=== PATIENT | female | born 1940 | race Caucasian/White ===

== ENCOUNTER 2017-02-16 11:16 | Emergency (ER) | payer OTHER ==
--- NOTE | 2017-02-16 11:34 | EDPHY ---
H & P Stated Complaint: stumbled/fell off porch impacting l shoulder and elbow/denies loc or neck p HPI/ROS: Chart made in Error. Please Ignore. Source: Patient - Personal History Current Tetanus/Diphtheria Vaccine: Yes - Medical/Surgical History Hx Asthma: No Hx Chronic Respiratory Disease: No Hx Diabetes: Yes Hx Cardiac Disease: No Hx Renal Disease: No Hx Cirrhosis: No Hx Alcoholism: No Hx HIV/AIDS: No Hx Splenectomy or Spleen Trauma: No Other PMH: diab/htn/hysterectomy - Social History Smoking Status: Never smoked Constitutional: Initial Vital Signs Temperature (C) 36.4 C 02/16/17 11:27 Heart Rate 88 02/16/17 11:27 Respiratory Rate 17 02/16/17 11:27 Blood Pressure 102/73 02/16/17 11:27 O2 Sat (%) 94 02/16/17 11:27 O2 Delivery Mode Room Air Allergies/Adverse Reactions: No Known Allergies Allergy (Unverified 02/16/17 11:24) Home Medications: Medication Instructions Recorded Aspirin 325 mg (*) 02/16/17 Atorvastatin Calcium 02/16/17 GABAPENTIN 02/16/17 Hydrocodone/APAP 5/325 [[place] 1 - 2 tab PO Q4H PRN #10 tab 02/16/17 5/325 (*)] LORAZEPAM 02/16/17 Lisinopril 02/16/17 MIRTAZAPINE 02/16/17 Metformin HCl 02/16/17 Omeprazole 02/16/17 QUEtiapine FUMARATE 02/16/17 VENLAFAXINE HCL 02/16/17 ZOLPIDEM TARTRATE 02/16/17 Medical Decision Making - Diagnostics Imaging Results: Imaging Impressions Cervical Spine CT 02/16/17 11:59 Impression: Mild periventricular and deep hemispheric white matter change that can be seen with small vessel ischemic disease. No evidence for acute intracranial abnormality. CT Cervical Spine Without IV Contrast History: Fall. Pain. Technique: 1.25 mm helical images were obtained of the cervical spine without contrast. Multiplanar reformation was performed. Radiation dose reduction technique was utilized. Findings: No evidence for acute fracture. No significant spondylolisthesis. There is disk height narrowing, endplate sclerosis, and osteophytosis at multiple levels. Uncovertebral joint hypertrophy and spurring and facet arthropathy are seen at multiple levels. Encroachment is more severe at C3-C4 with moderate to severe left and moderate right neural foraminal narrowing. Vascular calcifications are seen bilaterally in the carotids indicating atherosclerotic disease. No evidence for prevertebral soft tissue swelling. Impression: No evidence for acute fracture. Multilevel degenerative disk and degenerative joint disease of the cervical spine, more severe at C3-C4. Evidence of atherosclerotic disease in the carotid arteries, bilateral. Results called and discussed with Radha Anderson on 02/16/[address] 02/16/17 11:59 Impression: Mild periventricular and deep hemispheric white matter change that can be seen with small vessel ischemic disease. No evidence for acute intracranial abnormality. CT Cervical Spine Without IV Contrast History: Fall. Pain. Technique: 1.25 mm helical images were obtained of the cervical spine without contrast. Multiplanar reformation was performed. Radiation dose reduction technique was utilized. Findings: No evidence for acute fracture. No significant spondylolisthesis. There is disk height narrowing, endplate sclerosis, and osteophytosis at multiple levels. Uncovertebral joint hypertrophy and spurring and facet arthropathy are seen at multiple levels. Encroachment is more severe at C3-C4 with moderate to severe left and moderate right neural foraminal narrowing. Vascular calcifications are seen bilaterally in the carotids indicating atherosclerotic disease. No evidence for prevertebral soft tissue swelling. Impression: No evidence for acute fracture. Multilevel degenerative disk and degenerative joint disease of the cervical spine, more severe at C3-C4. Evidence of atherosclerotic disease in the carotid arteries, bilateral. Results called and discussed with Radha Anderson on 02/16/2017 at 1259 hours. - Data Points Medications Given: Discontinued Medications Hydrocodone Bitart/Acetaminophen ([place] 5/325) 1 tab PO EDNOW ONE Stop: 02/16/17 12:02 Last Admin: 02/16/17 12:11 Dose: 1 tab Ondansetron HCl (Zofran Odt) 4 mg PO EDNOW ONE Stop: 02/16/17 12:02 Last Admin: 02/16/17 12:11 Dose: 4 mg Departure - Departure Disposition: Home, Routine, Self-Care Clinical Impression: Accidental fall, Effusion, left elbow, Injury of left shoulder, Left elbow contusion, Degenerative cervical disc Condition: Fair Instructions: Fall Prevention for Older Adults (ED), Elbow Sprain (ED) Additional Instructions: Patient is to remain in splint and sling until seen by Orthopedics for follow- up within 1 week. Patient is not to smoke marijuana and take narcotic pain medicine at the same time. The patient has been advised to follow fall precautions. Referrals: Ry Ledezma MD [Medical Doctor] - 5-7 days, call for appt. Rachelle Reyes MD [Primary Care Provider] - As per Instructions Prescriptions: Hydrocodone/APAP 5/325 [[place] 5/325 (*)] 1 - 2 tab PO Q4H PRN #10 tab PRN Reason: Pain, Moderate
[2017-02-16] MEDS ORDERED: ONDANSETRON DISINTEGRATING 4 MG TAB PO ONE (12:01)
[2017-02-16] MEDS ORDERED: HYDROCODONE/APAP 5/325 TAB PO ONE (12:01)
--- NOTE | 2017-02-16 12:07 | EDPHY ---
H & P Time Seen by Provider: 02/16/17 12:04 HPI/ROS: HPI: Mr. Ac is a 76 yrs, female who presents with Chief Complaint: witnessed Fall Location: left side of head, left shoulder, left elbow Quality: Injury Duration: 1-2 hours prior to arrival Signs and Symptoms: No loss of consciousness, positive mild right-sided religious dull aching headache, no dizziness, no chest pain, no shortness of breath, no abdominal pain, no back pain, no radiation, no weakness, no bleeding Timing: sudden Severity: moderate Context: Patient smoked marijuana this morning and daughter feels was "high" which contributed to fall. Went out onto the back porch and tripped over the rug landing directly on her left side. Denies hitting her head but incidentally complains of right-sided headache. Was able to get herself up without assistance. Daughter witnessed the fall. Patient has a history of left shoulder replacement. Right hand dominant. Takes a full strength aspirin 325 mg daily. Modifying Factors: ice applied Comment: ROS: Eyes: No blurred vision Respiratory: No shortness of breath, no cough Cardiovascular: No chest pain Gastrointestinal: No nausea, no vomiting no diarrhea Genitourinary: No dysuria Extremities: No myalgias Neurologic: No weakness, no numbness Skin: No rashes Hematologic: No bruising, no bleeding MEDICAL/SURGICAL HISTORY: Hypertension, hyperlipidemia, anxiety, type 2 diabetes mellitus Social History: Moved to [place] from [place] this year to live with her daughter and her partner. Smoking Status: Never smoked Physical Exam: CONSTITUTIONAL: White elderly pleasant female, accompanied by daughter, awake and alert, no obvious distress HEENT: Atraumatic and normocephalic, PERRL, EOMI. Tympanic membranes clear. Oropharynx clear, no exudate and moist pink mucosa. Airway patent. No lymphadenopathy. NECK: Supple, full range of motion, no midline tenderness, mild left trapezius muscle reproducible tenderness, No meningismus. Cardiovascular: Normal S1/S2, regular rate, regular rhythm, without murmur rub or gallop. PULMONARY/CHEST: Symmetrical and nontender and no crepitus. Clear to auscultation bilaterally Good air movement. No accessory muscle usage. ABDOMEN: Soft, nondistended, nontender, no rebound, no guarding, no peritoneal signs, no masses or organomegaly. No CVAT. EXTREMITIES: 2/2 pulses, no clubbing, no cyanosis or edema. Left shoulder shows a well-healed anterior incision consistent with a replacement, good range of abduction/internal rotation/external rotation. Deltoid strength 5/5. Left elbow shows good range of flexion and extension. Moderate swelling and ecchymosis over the olecranon extending into the upper forearm. NEUROLOGICAL: no focal neuro deficits. GCS 15. no ataxia. SKIN: Warm and dry, pallor, no erythema. no rash. Good capillary refill. Constitutional: Initial Vital Signs Temperature (C) 36.4 C 02/16/17 11:27 Heart Rate 88 02/16/17 11:27 Respiratory Rate 17 02/16/17 11:27 Blood Pressure 102/73 02/16/17 11:27 O2 Sat (%) 94 02/16/17 11:27 O2 Delivery Mode Room Air Allergies/Adverse Reactions: No Known Allergies Allergy (Unverified 02/16/17 11:24) Home Medications: Medication Instructions Recorded Aspirin 325 mg (*) 02/16/17 Atorvastatin Calcium 02/16/17 GABAPENTIN 02/16/17 Hydrocodone/APAP 5/325 [[place] 1 - 2 tab PO Q4H PRN #10 tab 02/16/17 5/325 (*)] LORAZEPAM 02/16/17 Lisinopril 02/16/17 MIRTAZAPINE 02/16/17 Metformin HCl 02/16/17 Omeprazole 02/16/17 QUEtiapine FUMARATE 02/16/17 VENLAFAXINE HCL 02/16/17 ZOLPIDEM TARTRATE 02/16/17 Medical Decision Making - Diagnostics Imaging Results: Imaging Impressions Head CT 02/16/17 11:59 Impression: Mild periventricular and deep hemispheric white matter change that can be seen with small vessel ischemic disease. No evidence for acute intracranial abnormality. CT Cervical Spine Without IV Contrast History: Fall. Pain. Technique: 1.25 mm helical images were obtained of the cervical spine without contrast. Multiplanar reformation was performed. Radiation dose reduction technique was utilized. Findings: No evidence for acute fracture. No significant spondylolisthesis. There is disk height narrowing, endplate sclerosis, and osteophytosis at multiple levels. Uncovertebral joint hypertrophy and spurring and facet arthropathy are seen at multiple levels. Encroachment is more severe at C3-C4 with moderate to severe left and moderate right neural foraminal narrowing. Vascular calcifications are seen bilaterally in the carotids indicating atherosclerotic disease. No evidence for prevertebral soft tissue swelling. Impression: No evidence for acute fracture. Multilevel degenerative disk and degenerative joint disease of the cervical spine, more severe at C3-C4. Evidence of atherosclerotic disease in the carotid arteries, bilateral. Results called and discussed with Radha Anderson on 02/16/2017 at 1259 hours. ED Course/Re-evaluation: CT head scan, CT cervical scan, left shoulder x-ray, left elbow x-ray, left wrist x-ray, oral medications Witnessed Fall mechanical in nature. No signs of syncope. Fingerstick upon arrival [address] scan shows age-related changes without acute hemorrhage/infarct Cervical CT scan shows no evidence of fracture but does show multilevel degenerative changes No signs of neurovascular compromise back/ulnar nerve injury/dislocation Shoulder replacement hardware appears to be in appropriate position Patient will be placed in posterior long-arm splint and sling with orthopedic follow-up - Data Points Laboratory Results: 02/16/17 11:54 POC Glucose 96 mg/dL mg/dL (70-100) Medications Given: Discontinued Medications Hydrocodone Bitart/Acetaminophen ([place] 5/325) 1 tab PO EDNOW ONE Stop: 02/16/17 12:02 Last Admin: 02/16/17 12:11 Dose: 1 tab Ondansetron HCl (Zofran Odt) 4 mg PO EDNOW ONE Stop: 02/16/17 12:02 Last Admin: 02/16/17 12:11 Dose: 4 mg Point of Care Test Results: 02/16/17 11:54 POC Glucose 96 Departure - Departure Disposition: Home, Routine, Self-Care Clinical Impression: Effusion, left elbow, Degenerative cervical disc Accidental fall Qualifiers: Encounter type: initial encounter Qualified Code(s): W19.XXXA - Unspecified fall, initial encounter Injury of left shoulder Qualifiers: Encounter type: initial encounter Qualified Code(s): S49.92XA - Unspecified injury of left shoulder and upper arm, initial encounter Left elbow contusion Qualifiers: Encounter type: initial encounter Qualified Code(s): S50.02XA - Contusion of left elbow, initial encounter Condition: Fair Additional Instructions: Patient is to remain in splint and sling until seen by Orthopedics for follow- up within 1 week. Patient is not to smoke marijuana and take narcotic pain medicine at the same time. The patient has been advised to follow fall precautions. Referrals: Rachelle Reyes MD [Primary Care Provider] - As per Instructions Ry Ledezma MD [Medical Doctor] - 5-7 days, call for appt. Prescriptions: Hydrocodone/APAP 5/325 [[place] 5/325 (*)] 1 - 2 tab PO Q4H PRN #10 tab PRN Reason: Pain, Moderate
[2017-02-16 14:35] VITALS: RESP 16; O2SAT 95
[2017-02-16 14:36] VITALS: BP 125/90; PULSE 74; TEMP 97.9
== END 2017-02-16 14:47 | disposition home or self-care (01) ==
DX: S50.02XA Contusion of left elbow, initial encounter (principal); S49.92XA Unspecified injury of left shoulder and upper arm, initial encounter; M25.422 Effusion, left elbow; M50.30 Other cervical disc degeneration, unspecified cervical region; I10 Essential (primary) hypertension; E11.9 Type 2 diabetes mellitus without complications; Z79.82 Long term (current) use of aspirin; Z79.84 Long term (current) use of oral hypoglycemic drugs; W01.0XXA Fall on same level from slipping, tripping and stumbling without subsequent striking against object, initial encounter; Y92.89 Other specified places as the place of occurrence of the external cause; Y99.8 Other external cause status; Y93.89 Activity, other specified
CPT/HCPCS: A4565

== ENCOUNTER 2017-04-10 01:37 | Inpatient (IN) | payer OTHER ==
--- NOTE | 2017-04-10 01:48 | EDPHY ---
H & P HPI/ROS: HPI CHIEF COMPLAINT: Altered mental status, confusion, falls HISTORY OF PRESENT ILLNESS: This patient very pleasant 76-year-old female significant past medical history for hypertension, hyperlipidemia, mild dementia , presents emergency room with her daughter by private vehicle for confusion. Her daughter noticed this more evening around 9:00 p.m. when she got home she was acutely altered and confused. There is evidence that she fell with a abrasion to her left forehead and abrasion to the anterior right tibia. Patient denies headache. Chest pain shortness of breath. Her daughter decided to bring her to the emergency room due to confusion. She has had trouble with her sodium in the past. Her daughter reports she was hospitalized seen the a go back in September for altered mental status with hyponatremia. She has not had any new medications. However her primary care doctor Dr. Bran [facility] states she recently pulled her off omeprazole she thought the venlafaxine was interfering with this. Patient denies recent illness, denies fever, chest pain or significant shortness of breath. Past Medical History: Hypertension, hyperlipidemia, mild dementia, GERD Past Surgical History: No recent surgery Social History: Denies daily use drugs alcohol tobacco products. Family History: Noncontributory ROS REVIEW OF SYSTEMS: A comprehensive 10 point review of systems is otherwise negative aside from elements mentioned in the history of present illness. Exam Constitutional altered mental status, confusion, picking at things, triage nursing summary reviewed, vital signs reviewed, awake/alert. Eyes normal conjunctivae and sclera, EOMI, PERRLA. HENT normal inspection, atraumatic, moist mucus membranes, no epistaxis, neck supple/ no meningismus, no raccoon eyes. Respiratory clear to auscultation bilaterally, normal breath sounds, no respiratory distress, no wheezing. Cardiovascular rate normal, regular rhythm, no murmur, no edema, distal pulses normal. Gastrointestinal soft, non-tender, no rebound, no guarding, normal bowel sounds, no distension, no pulsatile mass. Genitourinary no CVA tenderness. Musculoskeletal no midline vertebral tenderness, full range of motion, no calf swelling, no tenderness of extremities, no meningismus, good pulses, neurovascularly intact. Skin pink, warm, & dry, no rash, skin atraumatic. Neurologic appears to be altered, awake, alert and oriented x 3, AAOx3, moves all 4 extremities equally, motor intact, sensory intact, CN II-XII intact, normal cerebellar, normal vision, normal speech. Psychiatric normal mood/affect. Heme/Lymph/Immune no lymphadenopathy. Differential Diagnosis: Includes but is not limited to in a particular order altered mental status acute, infection, electrolyte disturbance, intracranial bleed. 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 Re-evaluation: EKG interpretation by me on record in [employer] system. Impression and time of EKG 2:26 a.m., this is sinus rhythm Q-waves noted in inferior leads otherwise unremarkable EKG. ED CT scan of the head without contrast for altered mental status is unremarkable. No acute bleed. 0312AM: Patient's blood work has resulted. Shows a low sodium 124. This most likely the cause of her confusion. Symptomatic hyponatremia. Patient was given only 500 cc of fluid here in the emergency room. Will admit to the hospitalist service for further correction of her sodium. Source: Patient - Medical/Surgical History Hx Asthma: No Hx Chronic Respiratory Disease: No Hx Diabetes: Yes Hx Cardiac Disease: No Hx Renal Disease: No Hx Cirrhosis: No Hx Alcoholism: No Hx HIV/AIDS: No Hx Splenectomy or Spleen Trauma: No Other PMH: diab/htn/hysterectomy - Social History Smoking Status: Never smoked Constitutional: Initial Vital Signs Heart Rate 86 04/10/17 01:42 Respiratory Rate 16 04/10/17 01:42 Blood Pressure 93/67 L 04/10/17 01:42 O2 Sat (%) 95 04/10/17 01:42 O2 Delivery Mode Room Air Allergies/Adverse Reactions: No Known Allergies Allergy (Unverified 02/16/17 11:24) Home Medications: Medication Instructions Recorded Atorvastatin Calcium [Lipitor 40 20 mg PO DAILY 02/16/17 mg (*)] LORazepam [Ativan (*)] 0.5 mg PO BID 02/16/17 Lisinopril [Zestril 40 mg (*)] 40 mg PO DAILY@12 02/16/17 Venlafaxine Xr [Effexor Xr 75MG 300 mg PO DAILY 02/16/17 (*)] metFORMIN HCL [Glucophage 1000 mg] 1,000 mg PO BIDMEAL 02/16/17 Acetaminophen [Tylenol ES 500 mg 1,000 mg PO BID 04/10/17 (*)] Acetaminophen [Tylenol ES 500 mg 1,000 mg PO DAILY PRN 04/10/17 (*)] Aspirin EC [Aspirin EC 81 mg (*)] 81 mg PO DAILY 04/10/17 Estrogens,Conjugated [Premarin 0.3 0.3 mg PO DAILY 04/10/17 MG (*)] Quetiapine Fumarate [Seroquel Xr] 200 mg PO HS 04/10/17 Medical Decision Making - Data Points Laboratory Results: Laboratory Results 04/10/17 02:10 04/10/17 02:10 04/10/17 02:10 Sodium 122 mEq/L L mEq/L (134-144) Potassium 4.8 mEq/L mEq/L (3.5-5.2) Chloride 89 mEq/L L mEq/L (97-110) Carbon Dioxide 20 mEq/l L mEq/l (22-31) Anion Gap 13 mEq/L mEq/L (8-16) BUN 14 mg/dL mg/dL (7-23) Creatinine 0.5 mg/dL L mg/dL (0.6-1.0) Estimated GFR > 60 Glucose 128 mg/dL H mg/dL (70-100) Calcium 9.9 mg/dL mg/dL (8.5-10.4) TSH 2.830 uIU/mL uIU/mL (0.465-4.680) Medications Given: Acetaminophen (Tylenol) 1,000 mg PO BID [facility] Stop: 10/07/17 20:59 Last Admin: 04/10/17 21:36 Dose: 1,000 mg Acetaminophen (Tylenol) 1,000 mg PO DAILY PRN PRN Reason: Pain, Breakthrough Stop: 10/07/17 10:55 Last Admin: 04/10/17 17:22 Dose: 1,000 mg Enoxaparin Sodium (Lovenox) 40 mg SC DAILY [facility] Stop: 10/07/17 08:59 Last Admin: 04/10/17 07:48 Dose: 40 mg Estrogens Conjugated (Premarin) 0.3 mg PO DAILY [facility] Stop: 10/07/17 10:59 Last Admin: 04/10/17 12:08 Dose: 0.3 mg Lisinopril (Zestril) 40 mg PO DAILY@12 [facility] Stop: 10/07/17 11:59 Last Admin: 04/10/17 12:01 Dose: 40 mg Lorazepam (Ativan) 0.5 mg PO BID [facility] Stop: 10/07/17 20:59 Last Admin: 04/10/17 21:36 Dose: 0.5 mg Metformin HCl (Glucophage) 1,000 mg PO BIDMEAL [facility] Stop: 10/07/17 17:59 Last Admin: 04/10/17 17:22 Dose: 1,000 mg Ondansetron HCl (Zofran) 4 mg IVP Q4HRS PRN PRN Reason: Nausea/Vomiting, Can't Take PO Stop: 10/07/17 05:02 Last Admin: 04/10/17 21:36 Dose: 4 mg Quetiapine Fumarate (Seroquel) 200 mg PO HS [facility] Stop: 10/07/17 20:59 Last Admin: 04/10/17 21:36 Dose: 200 mg Sodium Chloride (Salt Tablet) 1,000 mg PO TIDMEAL [facility] Stop: 10/07/17 10:59 Last Admin: 04/10/17 17:22 Dose: 1,000 mg Discontinued Medications Acetaminophen (Tylenol) 1,000 mg PO EDNOW ONE Stop: 04/10/17 03:44 Last Admin: 04/10/17 03:45 Dose: 1,000 mg Acetaminophen (Tylenol) 650 mg PO Q4HRS PRN PRN Reason: Pain, Mild/Fever, Can Take PO Stop: 10/07/17 05:02 Last Admin: 04/10/17 07:47 Dose: 650 mg Sodium Chloride (Ns) 500 mls @ 1,000 mls/hr IV EDNOW ONE PRN Reason: Protocol Stop: 04/10/17 02:38 Last Admin: 04/10/17 02:28 Dose: 500 mls Magnesium Sulfate (Magnesium Sulf 2 Gm (Premix)) 50 mls @ 50 mls/hr IV ONCE ONE Stop: 04/10/17 11:51 Last Admin: 04/10/17 11:59 Dose: 50 mls Ondansetron HCl (Zofran) 4 mg IVP EDNOW ONE Stop: 04/10/17 03:44 Last Admin: 04/10/17 03:44 Dose: 4 mg Departure - Departure Disposition: [facility] Clinical Impression: Hyponatremia Altered mental status Qualifiers: Altered mental status type: unspecified Qualified Code(s): R41.82 - Altered mental status, unspecified Condition: Fair
[2017-04-10] MEDS ORDERED: NS 500 ML IV ONE (02:09)
[2017-04-10 02:20] LABS: % IMMATURE GRANULYOCYTES 0.4 % (0.0-1.1); ABSOLUTE IMMATURE GRANULOCYTES 0.05 10^3/uL (0.00-0.10); ADD DIFF? NO; ADD MORPH? NO; ADD SCAN? NO; ATYPICAL LYMPHOCYTE FLAG 0 (0-99); FRAGMENT RBC FLAG 0 (0-99); HEMATOCRIT 36.7 % (38.0-47.0); HEMOGLOBIN 13.1 g/dL (12.6-16.3); LEFT SHIFT FLG 0 (0-99); LIPEMIA HEMOLYSIS FLAG 90 (0-99); MEAN CELL HEMOGLOBIN 30.7 pg (27.9-34.1); MEAN CELL HEMOGLOBIN CONCENTR. 35.7 g/dL (32.4-36.7); MEAN CELL VOLUME 85.9 fL (81.5-99.8); MEAN PLATELET VOLUME 8.3 fL (8.7-11.7); PLATELET CLUMPS FLAG 0 (0-99); PLATELET COUNT 290 10^3/uL (150-400); RED BLOOD CELL COUNT 4.27 10^6/uL (4.18-5.33); RED CELL DISTRIBUTION WIDTH 15.3 % (11.5-15.2)
--- NOTE | 2017-04-10 02:28 | CPEKG ---
Heart Rate: 85 RR Interval: 706 P-R Interval: 116 QRSD Interval: 90 QT Interval: 384 QTC Interval: 457 P [place]: 50 QRS [place]: 12 T Wave Ken[place]: 76 EKG Severity - BORDERLINE ECG - EKG Impression: SINUS RHYTHM EKG Impression: BORDERLINE INFERIOR Q WAVES Electronically Signed By: Elie Tirado 10-Apr-2017 07:14:16
[2017-04-10 02:30] LABS: APTT 25.2 SEC (23.0-38.0); INR 0.97 (0.83-1.16); PROTIME(PATIENT) 12.8 SEC (12.0-15.0)
[2017-04-10 02:37] LABS: ALANINE AMINOTRANSFERASE 35 IU/L (9-52); ALBUMIN 4.5 g/dL (3.5-5.0); ALKALINE PHOSPHATASE 81 IU/L (38-126); ANION GAP 14 mEq/L (8-16); ASPARTATE AMINOTRANSFERASE 29 IU/L (14-46); BILIRUBIN,TOTAL 0.3 mg/dL (0.1-1.4); BILIRUBIN-CONJUGATED 0.3 mg/dL (0.0-0.5); CALCIUM 9.9 mg/dL (8.5-10.4); CARBON DIOXIDE 20 mEq/l (22-31); CHLORIDE 90 mEq/L (97-110); CREATININE 0.5 mg/dL (0.6-1.0); ETHANOL SERUM < 10 mg/dL (0-10); GLOMERULAR FILTRATION RATE > 60; GLUCOSE 133 mg/dL (70-100); MAGNESIUM 1.5 mg/dL (1.6-2.3); POTASSIUM 4.2 mEq/L (3.5-5.2); SODIUM 124 mEq/L (134-144); TOTAL PROTEIN 7.2 g/dL (6.3-8.2)
[2017-04-10 02:48] LABS: TROPONIN I < 0.012 ng/mL (0.000-0.034)
[2017-04-10 03:05] LABS: CK-MB INTERPRETATION NEGATIVE (NEGATIVE); CREATINE KINASE-MB FRACTION 5.67 ng/mL (0.00-3.19)
[2017-04-10] MEDS ORDERED: ACETAMINOPHEN 500 MG TAB ONE (03:42)
[2017-04-10] MEDS ORDERED: ONDANSETRON 4 MG/2 ML VIAL ONE (03:42)
[2017-04-10] MEDS ORDERED: ACETAMINOPHEN 500 MG TAB PO ONE (03:43)
[2017-04-10] MEDS ORDERED: ONDANSETRON 4 MG/2 ML VIAL IVP ONE (03:43)
[2017-04-10 04:36] LABS: COLOR PALE YELLOW; LEUKOCYTE ESTERASE,URINE NEGATIVE (NEGATIVE); NITRITE,URINE NEGATIVE (NEGATIVE)
[2017-04-10] MEDS ORDERED: ACETAMINOPHEN 325 MG TAB PO PRN (05:03)
[2017-04-10] MEDS: ONDANSETRON 4 MG/2 ML VIAL IVP PRN ×3 (07:49→21:36)
--- NOTE | 2017-04-10 07:54 | GHP ---
[f rep st] HISTORY AND PHYSICAL DATE OF ADMISSION: 04/10/2017 SOURCE: Patient with a history of dementia and quite poor short-term memory at this time. Her daughter did not accompany her to the floor so I am unable to ascertain the patient's baseline. Remainder of information obtained by review of EMR and discussion with ED provider. CHIEF COMPLAINT: Confusion. HISTORY OF PRESENT ILLNESS: This is a very pleasant, 76-year-old female with past medical history significant for dementia, falls, degenerative disk disease of cervical spine, hyperlipidemia, diabetes type 2, hypertension, depression, and GERD, who presents to the emergency department today with acute on chronic altered mental status changes. Apparently patient had been at home when she sustained a fall. Her daughter returned home to find the patient had some abrasions to her right lower leg and left elbow. The patient does not recall any of these events and overall very poor historian. At the time of my interview, the patient is sitting up in the chair with the nursing staff. She is awake and alert but oriented only to person and place of hospital but not the city or state. She is oriented to year but not month. She is not able to recall my name or that she saw me after absence for 5 minutes. Apparently, patient's daughter brought her in for acute worsening of her confusion. Again baseline, unable to ascertain at this point. The patient was found to be hyponatremic and daughter had reported she was recently hospitalized several months ago, sometime in November in [place] for similar symptoms with findings of hyponatremia. She was given apparently IV fluids and subsequently discharged home. The patient is reporting a headache, abdominal pain initially and several minutes later, when reviewed her complaints, she did note a headache and back pain. REVIEW OF SYSTEMS: Quite limited secondary to patient's confusion and question of reliability of her answers as they changed within minutes of asking them. ALLERGIES: No known drug allergies. HOME MEDICATIONS: As available in EMR. Ambien, venlafaxine, Seroquel, omeprazole, mirtazapine, metformin, lorazepam, lisinopril, [place], gabapentin, atorvastatin, aspirin. PAST MEDICAL HISTORY: Significant for dementia, history of hyponatremia, falls , degenerative disk disease cervical spine, hyperlipidemia, diabetes type 2, hypertension, benign essential, depression and GERD. PAST SURGICAL HISTORY: Patient states hysterectomy. FAMILY HISTORY: Unable to obtain secondary to patient's dementia. SOCIAL HISTORY: No known drugs, alcohol, or tobacco use as per the patient. The patient currently resides with her daughter. She recently moved from [place] to be closer to her daughter. CODE STATUS: At this time unable to verify with the family regarding any advanced directives or code status. Will plan to revisit in the daytime. PHYSICAL EXAM: VITALS: Upon arrival, initial blood pressure 93/67, heart rate 86, respiratory rate 16, O2 saturation 95% on room air. Vitals on the floor: Blood pressure 166/90, heart rate 83, respiratory rate 14, O2 saturation 93% on room air with a temperature 36.6. GENERAL: No acute distress, pleasant, frail elderly appearing female is sitting up in a chair. She is petite and of a thin frame. HEENT: Head normocephalic, atraumatic. Eyes: Extraocular muscles are grossly intact. This patient has difficulty following commands. Pupils equal, round, decreased reactivity to light bilaterally but symmetric. No scleral icterus or conjunctival injection. ENT: Mucous membranes appear dry. No oropharyngeal erythema or exudates. No rhinorrhea. CV: Regular rate and rhythm. No murmurs, rubs, or gallops. RESPIRATORY: Lungs are clear to auscultation bilaterally. No wheezes, rales, or rhonchi. Diminished breath sounds, but this I feel is secondary to poor inspiratory effort. ABDOMEN: Positive bowel sounds, soft. The patient without any pinpoint tenderness to palpation. No rebound or guarding. Area in the left lower quadrant feels full of stool versus a soft mass. : No Clark in place. No suprapubic tenderness to palpation. EXTREMITIES: The patient with generalized weakness. Strength upper and lower extremities 4/4 bilaterally and symmetric. NEURO: Cranial nerves limited evaluation secondary to patient's ability to follow instructions. Grossly nonfocal. No facial drooping. No focal deficits. PSYCHIATRIC: The patient is awake, alert, oriented to person and place. She has a significantly reduced short-term memory. She is quite forgetful. She is able to call for help, but has forgotten whether she had anything to drink as she completed a beverage. Also has forgotten how to get to the restroom and has requested assistance. LABORATORY STUDIES: WBC 13.22, hemoglobin and hematocrit 13.1 and 36.7, MCV 85.9, platelet count is 290. No bands. PT is 12.8, INR 0.97, PTT is 25.2. Sodium is 124, potassium 4.2, chloride is 90, CO2 20, anion gap 14, BUN 13, creatinine 0.5, GFR of greater than 60, glucose 133, serum osmolality 262, calcium 7.9, magnesium 1.5, total bilirubin 0.3, conjugated 0.3, total protein 7.2, albumin 4.5, ALT 35, AST is 29, alkaline phosphatase is 81. CK is 174, CK- MB is 5.67. Troponin is negative. Albumin is 4.5, lipase is 148. Urine osmolality 296, otherwise negative with a pH of 6.0, specific gravity 1.010. U tox positive for marijuana, otherwise negative. No alcohol. EKG, reviewed by myself, showing normal sinus rhythm in the 80s, small Q-waves in the inferolateral leads. No acute ST changes. No comparison EKGs available. Chest x-ray image reviewed by myself, report is pending. Negative for any acute cardiopulmonary changes. A left shoulder replacement is present. CT head: Final report still pending. Preliminary negative for acute changes. DISCUSSION AND DECISION-MAKING: This is a pleasant, 76-year-old female with a history of dementia, who presents with acute on chronic confusion. 1. Altered mental status, not otherwise specified. Baseline orientation is unknown at this time as the patient's daughter had gone home before patient arrived to the floor. We will need to follow up with her in the morning and see if there has been any improvement. Altered mental status is likely multifactorial including patient's hyponatremia, initial hypotension and polypharmacy with patient's numerous psychiatric medications and sedatives. 2. hyponatremia - ddx including hypovolemic hyponatremia vs. medications ( venlafaxine) vs. siadh or adrenal. check urine/serum studies, cortisol, TSH. Continue with IVF resuscitation at this time as patient does appear dry. unclear at this time given pt history of dementia if able to maintain oral hydration independently has required prompting here. 3. Hypotension. Blood pressure is improved, status post IV fluids. The patient is tolerating p.o. hydration at this time. Continue to monitor. 4. Leukocytosis, likely reactive in the setting of recent fall. However, we will monitor for any elevations in temperature which are within normal limits as of yet. The patient does have a normal urinalysis and on exam, appears to have a small area on the left lower quadrant of the abdomen that is firm, but without pain and suspicious for stool. The patient's complaint of pain is not consistently in the left lower quadrant, so will need to follow up and consider a bowel regimen versus further imaging. 5. Dementia. Supportive care at this time. The patient will likely require additional assistance and possibly sitter versus a family member at bedside as she does get up unassisted. 6. Hyperglycemia, which is mildly elevated. Will allow for some permissive hyperglycemia in this pleasant elderly lady. no listed history of diabetes. 7. Fluid, electrolyte, nutrition. Continue with oral intake. Patient is status post 500 cc of normal saline in the emergency department and anticipate that should nearly correct her sodium. Will monitor remainder of electrolytes. 8. Prophylaxis. SCDs and Lovenox. COR STATUS: At this time will remain full pending further discussion with patient's daughter. DISPOSITION: The patient has been admitted to observation on the PCU for close monitoring. Anticipate patient will require more than 2 midnight stay given her acute mental status changes and hyponatremia. /[id number]/MODL MTDD
[2017-04-10] MEDS ORDERED: ENOXAPARIN 40 MG/0.4 ML SYR SC SCH (09:00)
[2017-04-10] MEDS ORDERED: MAGNESIUM SULF 2 GM/WATER 50 ML IV ONE (10:52)
--- NOTE | 2017-04-10 11:02 | PDMN ---
Medical Necessity Medical necessity: Patient meets INPT criteria/MCG Systemic or Infectious Condition GRG - (Na 124; acute on chronic altered mental status; leukocytosis/ WBC > 13,000; received 500cc IV NS, anticipated LOS > 2 midnights for ongoing treatment and eval).
[2017-04-10] MEDS: SODIUM CHLORIDE 1,000 MG TAB PO SCH ×3 (12:01→17:22)
[2017-04-10] MEDS: LISINOPRIL 40 MG TAB PO SCH (12:01)
[2017-04-10] MEDS: ESTROGENS,CONJUGATED 0.3 MG TAB PO SCH (12:08)
[2017-04-10 15:28] LABS: ANION GAP 13 mEq/L (8-16); CALCIUM 9.9 mg/dL (8.5-10.4); CARBON DIOXIDE 20 mEq/l (22-31); CHLORIDE 89 mEq/L (97-110); CREATININE 0.5 mg/dL (0.6-1.0); GLOMERULAR FILTRATION RATE > 60; GLUCOSE 128 mg/dL (70-100); POTASSIUM 4.8 mEq/L (3.5-5.2); SODIUM 122 mEq/L (134-144)
--- NOTE | 2017-04-10 16:29 | HOSPPROG ---
Hospitalist Progress Note Assessment/Plan: * Hyponatremia - suspect due to her psych meds -elevated urine sodium c/w SIADH -d/w with PCP Dr. Rachelle Reyes -reduce Venlafaxine but maintain Seroquel dose -worse sodium likely due to IVF in ER -start fluid restriction + salt tabs and monitor closely * Metabolic encephalopathy - due to hyponatremia * Dementia * Anxiety -continue seroquel, Venlafaxine, chronic ativan * Chronic leukocytosis -has seen hematology as outpatient - benign * DM II -metformin Subjective: Minimally verbal Objective: Vital Signs Temp Pulse Resp BP Pulse Ox 37.3 C 100 16 130/80 H 97 04/10/17 15:01 04/10/17 15:04 04/10/17 15:01 04/10/17 15:04 04/10/17 15:01 04/09/17 04/10/17 04/11/17 05:59 05:59 05:59 Intake Total 450 Balance 450 PT 12.8 SEC (12.0-15.0) 04/10/17 02:10 INR 0.97 (0.83-1.16) 04/10/17 02:10 cxr - negative Laboratory Tests 04/10/17 04/10/17 04/10/17 02:10 02:10 03:37 Sodium 124 L 122 L Urine Osmolality 296 L Ur Random Sodium 67 - Physical Exam Constitutional: no apparent distress, appears nourished, not in pain Cardiovascular: regular rate and rhythym, no murmur, rub, or gallop Respiratory: no respiratory distress, no rales or rhonchi, clear to auscultation Gastrointestinal: normoactive bowel sounds, soft, non-tender abdomen, no palpable masses Skin: no rashes or abrasions, no fluctuance, no induration Neurologic: No AAOx3 Psychiatric: encephalopathic, flat affect, poor insight, poor judgement, poor memory ICD10 Worksheet Patient Problems: Problems Problem Status Onset Altered mental status Acute Hyponatremia Acute
--- NOTE | 2017-04-10 16:47 | ASMTCASEMG ---
Living Arrangements What is your living Answers: With Child(amelia) arrangement? Who do you live with? Type Of Residence What kind of residence do Answers: House you live in? Discharge Plan Comments Coordination Status Comments Notes: Pt is a 76 y/o female admitted w/ hyponatremia and confusion. Pt has a hx of dementia and lives w/ daughter. Pt recently moved here from [place]. PT is currently recommending home w/ 24hr supervision. Still awaiting OT recommendations. CM met w/ daughter and pt for dispo planning. CM informed daughter of therapies recommendations. Daughter would like to touch base tomorrow. Pt has a palliative care physician through her PCP's office, Rachelle ([phone]). CM spoke w/ Rachelle and provided updates. CM to follow. Date Signed: 04/10/2017 04:47 PM Electronically Signed By:DUKE Bustamante
[2017-04-10] MEDS: ACETAMINOPHEN 500 MG TAB PO PRN (17:22)
[2017-04-10] MEDS: metFORMIN HCL 500 MG TAB PO SCH (17:22)
[2017-04-10] MEDS ORDERED: NON-FORMULARY NEW DRUG (Metformin Hcl [Glucophage 1000 Mg] 1,000 MG) PO SCH (18:00)
[2017-04-10] MEDS ORDERED: QUETIAPINE FUMARATE 200 MG PO SCH ×2 (21:00)
[2017-04-10] MEDS: ACETAMINOPHEN 500 MG TAB PO SCH (21:36)
[2017-04-10] MEDS: QUEtiapine FUMARATE 200 MG TAB PO SCH (21:36)
[2017-04-10] MEDS: LORazepam 0.5 MG TAB PO SCH (21:36)
[2017-04-11] MEDS ORDERED: NS 500 ML IV ONE (01:37)
--- NOTE | 2017-04-11 01:51 | CPEKG ---
Heart Rate: 64 RR Interval: 938 P-R Interval: 140 QRSD Interval: 80 QT Interval: 408 QTC Interval: 421 P [place]: 58 QRS [place]: 55 T Wave [place]: 78 EKG Severity - NORMAL ECG - EKG Impression: SINUS RHYTHM Electronically Signed By: Brenden Banks 11-Apr-2017 10:25:05
[2017-04-11 02:08] LABS: % IMMATURE GRANULYOCYTES 0.4 % (0.0-1.1); ABSOLUTE IMMATURE GRANULOCYTES 0.07 10^3/uL (0.00-0.10); ADD DIFF? NO; ADD MORPH? NO; ADD SCAN? NO; ATYPICAL LYMPHOCYTE FLAG 10 (0-99); FRAGMENT RBC FLAG 0 (0-99); HEMATOCRIT 31.1 % (38.0-47.0); HEMOGLOBIN 10.4 g/dL (12.6-16.3); LEFT SHIFT FLG 0 (0-99); LIPEMIA HEMOLYSIS FLAG 80 (0-99); MEAN CELL HEMOGLOBIN 30.6 pg (27.9-34.1); MEAN CELL HEMOGLOBIN CONCENTR. 33.4 g/dL (32.4-36.7); MEAN CELL VOLUME 91.5 fL (81.5-99.8); MEAN PLATELET VOLUME 8.7 fL (8.7-11.7); PLATELET CLUMPS FLAG 10 (0-99); PLATELET COUNT 332 10^3/uL (150-400); RED CELL DISTRIBUTION WIDTH 15.8 % (11.5-15.2)
--- NOTE | 2017-04-11 02:15 | HOSPPROG ---
Hospitalist Progress Note Assessment/Plan: Paged by RN regarding increase in HR 130s-160s and hypotension SBP 70s with diaphoresis. IVF bolus and stat EKG were ordered however patient subsequently had sudden episode of bradycardia to 40 bpm and Rapid response called. Patient with subsequent bowel movement in the bed large melenic/tarry appearing stool. Labs drawn and additional bolus ordered with improvement in BPs. Patient remained responsive during event. Attempts made to contact daughter. COR status not yet addressed as daughter has not been to bedside with physician available. Gen - NAD. patient appears pale, cool extremities and faint pulses. CV - rrr 80s. Resp - CTA - b Abd - + BS soft. NTTP. Neuro - patient oriented to person and place. moves all extremities. generalized weakness nothing focal. Stat Labs ordered including h/h, cmp, mag, phos, type/screen. A: Patient with likely vasovagal response with subsequent tarry stool that will be sent for guaic vs. atrial tach current EKG pt in NSR. Repeat H/H. review ordered labs. holding ppx lovenox. IVF. transfuse if needed. BPs improving with IVF. Bolus administered as NS. will transition fluids to 1/4 NS with history of hyponatremia. 35 minutes critical care time. Objective: Vital Signs Temp Pulse Resp BP Pulse Ox 36.8 C 99 18 120/72 96 04/10/17 18:58 04/10/17 22:03 04/10/17 18:58 04/10/17 22:03 04/10/17 18:58 04/09/17 04/10/17 04/11/17 05:59 05:59 05:59 Intake Total 700 Balance 700 PT 12.8 SEC (12.0-15.0) 04/10/17 02:10 INR 0.97 (0.83-1.16) 04/10/17 02:10 ICD10 Worksheet Patient Problems: Problems Problem Status Onset Altered mental status Acute Hyponatremia Acute
[2017-04-11 02:18] LABS: ALANINE AMINOTRANSFERASE 32 IU/L (9-52); ALBUMIN 3.9 g/dL (3.5-5.0); ALKALINE PHOSPHATASE 46 IU/L (38-126); ANION GAP 19 mEq/L (8-16); ASPARTATE AMINOTRANSFERASE 22 IU/L (14-46); BILIRUBIN,TOTAL 0.3 mg/dL (0.1-1.4); CARBON DIOXIDE 16 mEq/l (22-31); CHLORIDE 96 mEq/L (97-110); CREATININE 0.7 mg/dL (0.6-1.0); GLOMERULAR FILTRATION RATE > 60; GLUCOSE 144 mg/dL (70-100); POTASSIUM 4.2 mEq/L (3.5-5.2); SODIUM 131 mEq/L (134-144); TOTAL PROTEIN 6.2 g/dL (6.3-8.2)
[2017-04-11 02:29] LABS: TROPONIN I 0.024 ng/mL (0.000-0.034)
[2017-04-11] MEDS ORDERED: D5W 1/4 NS 1,000 ML IV SCH (02:30)
[2017-04-11 05:14] LABS: % IMMATURE GRANULYOCYTES 0.7 % (0.0-1.1); ABSOLUTE IMMATURE GRANULOCYTES 0.12 10^3/uL (0.00-0.10); ADD DIFF? NO; ADD MORPH? NO; ADD SCAN? NO; ATYPICAL LYMPHOCYTE FLAG 0 (0-99); FRAGMENT RBC FLAG 0 (0-99); HEMATOCRIT 27.8 % (38.0-47.0); HEMOGLOBIN 9.4 g/dL (12.6-16.3); LEFT SHIFT FLG 0 (0-99); LIPEMIA HEMOLYSIS FLAG 90 (0-99); MEAN CELL HEMOGLOBIN 30.4 pg (27.9-34.1); MEAN CELL HEMOGLOBIN CONCENTR. 33.8 g/dL (32.4-36.7); MEAN PLATELET VOLUME 8.8 fL (8.7-11.7); PLATELET CLUMPS FLAG 0 (0-99); PLATELET COUNT 288 10^3/uL (150-400); RED BLOOD CELL COUNT 3.09 10^6/uL (4.18-5.33); RED CELL DISTRIBUTION WIDTH 15.7 % (11.5-15.2)
[2017-04-11] MEDS: ONDANSETRON 4 MG/2 ML VIAL IVP PRN (05:38)
[2017-04-11 05:55] LABS: APTT 24.2 SEC (23.0-38.0); INR 1.12 (0.83-1.16); PROTIME(PATIENT) 14.3 SEC (12.0-15.0)
[2017-04-11] MEDS ORDERED: PANTOPRAZOLE SODIUM 40 MG in NS 100 ML IV SCH (07:00)
--- NOTE | 2017-04-11 07:50 | HOSPPROG ---
Hospitalist Progress Note Assessment/Plan: Hospitalist Float Note Patient with further episodes of tachycardia to 140s with stable BPs at this time. RN called and noted patient now having coffee ground emesis. no bright red blood and BP otherwise stable. H/H declined slightly. Addendum to previous note. abdominal exam was soft with hypoactive bowel sounds. on admission an area of suspected stool collection LLQ was noted and this has resolved. no masses. I attempted again to call patient daughter Ifeoma and left voicemail and subsequently tried contacting patient sister without response. Case discussed with GI regarding patient current status. Still need to clarify scope of therapy with family as patient with dementia and currently BPs stable. Coffee ground emesis and melenic stools reassuring for some amount of chronicity. no bright red blood reported. . continue PPI therapy at this time. As COR status has not yet been clarified with daughter if patient becomes unstable or signs of conversion to acute bleed will consult GI for emergent EGD. For now will transfer patient to ICU for closer monitoring, ppi therapy and await further discussions with family. -- Mica Saldivar MD. Objective: Vital Signs Temp Pulse Resp BP Pulse Ox 36.7 C 159 H 14 107/76 97 04/11/17 04:56 04/11/17 06:39 04/11/17 04:56 04/11/17 06:39 04/11/17 04:56 Laboratory Results 04/11/17 04:22 04/11/17 01:55 04/10/17 04/11/17 04/12/17 05:59 05:59 05:59 Intake Total 2778 Output Total 600 Balance 2178 PT 14.3 SEC (12.0-15.0) 04/11/17 04:22 INR 1.12 (0.83-1.16) 04/11/17 04:22 ICD10 Worksheet Patient Problems: Problems Problem Status Onset Altered mental status Acute Hyponatremia Acute
[2017-04-11] MEDS ORDERED: VENLAFAXINE XR 150 MG CAP PO SCH (09:00)
[2017-04-11] MEDS ORDERED: ASPIRIN EC 81 MG TAB PO SCH (09:00)
[2017-04-11] MEDS: metFORMIN HCL 500 MG TAB PO SCH ×2 (09:41→18:32)
[2017-04-11] MEDS: ACETAMINOPHEN 500 MG TAB PO SCH ×2 (09:41→18:32)
[2017-04-11] MEDS: ESTROGENS,CONJUGATED 0.3 MG TAB PO SCH (09:42)
[2017-04-11] MEDS: LORazepam 0.5 MG TAB PO SCH ×2 (09:42→21:28)
[2017-04-11] MEDS: ATORVASTATIN CALCIUM 40 MG TAB PO SCH (09:42)
[2017-04-11] MEDS ORDERED: HYDROmorphONE/DILAUDID 1 MG/ML INJ IVP PRN (10:03)
[2017-04-11] MEDS ORDERED: LORazepam 2 MG/ML INJ IVP PRN (10:17)
--- NOTE | 2017-04-11 10:55 | PDANEPAE ---
ANE Past Medical History - Pulmonary History Hx Oxygen in Use at Home: Yes O2 in Use at Home (L/minute): 3 Hx Sleep Apnea: Yes Sleep Apnea Screening Result - Last Documented: Positive - Endocrine History Hx Diabetes: Yes ANE Review of Systems Review of Systems: ANE Patient History - Allergies Allergies/Adverse Reactions: No Known Allergies Allergy (Unverified 02/16/17 11:24) - Home Medications Home Medications: Atorvastatin Calcium [Lipitor 40 mg (*)] 20 mg PO DAILY 02/16/17 [Last Taken Unknown] LORazepam [Ativan (*)] 0.5 mg PO BID 02/16/17 [Last Taken Unknown] Lisinopril [Zestril 40 mg (*)] 40 mg PO DAILY@12 02/16/17 [Last Taken Unknown] Venlafaxine Xr [Effexor Xr 75MG (*)] 300 mg PO DAILY 02/16/17 [Last Taken Unknown] metFORMIN HCL [Glucophage 1000 mg] 1,000 mg PO BIDMEAL 02/16/17 [Last Taken Unknown] Acetaminophen [Tylenol ES 500 mg (*)] 1,000 mg PO BID 04/10/17 [Last Taken Unknown] Acetaminophen [Tylenol ES 500 mg (*)] 1,000 mg PO DAILY PRN 04/10/17 [Last Taken Unknown] Aspirin EC [Aspirin EC 81 mg (*)] 81 mg PO DAILY 04/10/17 [Last Taken Unknown] Estrogens,Conjugated [Premarin 0.3 MG (*)] 0.3 mg PO DAILY 04/10/17 [Last Taken Unknown] Quetiapine Fumarate [Seroquel Xr] 200 mg PO HS 04/10/17 [Last Taken Unknown] - NPO status NPO Since - Liquids (Date): 04/11/17 NPO Since - Liquids (Time): 00:00 NPO Since - Solids (Date): 04/11/17 NPO Since - Solids (Time): 00:00 - Smoking Hx Smoking Status: Never smoked ANE Labs/Vital Signs - Labs Result Diagrams: 04/11/17 04:22 04/11/17 01:55 - Vital Signs Blood Pressure: 198/92 Heart Rate: 97 Respiratory Rate: 18 O2 Sat (%): 100 Height: 157.48 cm Weight: 47.9 kg ANE Physical Exam - Airway Neck exam: FROM Mallampati Score: Class 2 Mouth exam: normal dental/mouth exam - Pulmonary Pulmonary: no respiratory distress - Cardiovascular Cardiovascular: regular rate and rhythym - ASA Status ASA Status: II ANE Anesthesia Plan Total IV Anesthesia: Yes
[2017-04-11] MEDS ORDERED: fentaNYL 100 MCG/2 ML INJ ONE (11:07)
[2017-04-11] MEDS ORDERED: PROPOFOL/EMULSION 500 MG/50 ML BOTTLE IV ONE (11:07)
[2017-04-11] MEDS ORDERED: LIDOCAINE 2% 100 MG/5 ML SYR ONE (11:09)
[2017-04-11] MEDS ORDERED: ONDANSETRON 4 MG/2 ML VIAL IVP PRN (11:23)
[2017-04-11] MEDS ORDERED: NALOXONE HCL 0.4 MG/ML INJ IVP PRN (11:23)
[2017-04-11] MEDS ORDERED: ALBUTEROL 3 ML DEYVIAL IH PRN (11:23)
--- NOTE | 2017-04-11 11:23 | GIREPORT ---
[facility] - Endoscopy Department Patient Name: Kourtney Ac Procedure Date: 04/11/2017 10:55 AM Patient Type: Inpatient Attending MD/ ER Physician: Jens Gutierrez MD Procedure: Upper GI endoscopy Indications: Acute post hemorrhagic anemia, Melena Providers: Jens Gutierrez MD Medicines: Propofol per Anesthesia Complications: No immediate complications. Description of Procedure: After obtaining informed consent, the endoscope was passed under direct vision. Throughout the procedure, the patient's blood pressure, pulse, and oxygen saturations were monitored continuous ly. The Endoscope was introduced through the mouth, and advanced to the second part of duodenum. The upper GI endoscopy was accomplished without difficulty. The patient tolerated the procedure well . Findings: The esophagus was normal. Three non-bleeding superficial gastric ulcers with no stigmata of bleeding were found in the gas tric antrum and in the prepyloric region of the stomach. The largest lesion was 10 mm in largest dime nsion. Two non-bleeding superficial duodenal ulcers with no stigmata of bleeding were found in the duod enal bulb. The largest lesion was 8 mm in largest dimension. The first portion of the duodenum and second portion of the duodenum were normal. Estimated Blood Loss: Estimated blood loss: none. Post Op Diagnosis: - Normal esophagus. - Non-bleeding gastric ulcers with no stigmata of bleeding. - Multiple non-bleeding duodenal ulcers with no stigmata of bleeding. - Normal first portion of the duodenum and second portion of the duoden um. - No specimens collected. Recommendation: - Use Protonix (pantoprazole) 40 mg PO daily. - Perform an H. pylori serology today and treat if positive. - Avoid all NSAIDs. - Daily Hct. - Resume regular diet. - Return patient to [facility] for ongoing care. - Thank you for allowing me to be involved in the care of your patient. Attending Participation: I personally performed the entire procedure without the assistance of a fellow, resident or surg ical news production assistant. Jens Gutierrez MD Jens Gutierrez MD 04/11/2017 11:23:27 AM Number of Addenda: 0 Note Initiated On: 04/11/2017 10:55 AM [email or web address]
--- NOTE | 2017-04-11 11:23 | POSTANESTH ---
Post Anesthetic Evaluation Cardiovascular Status: Normal, Stable, Similar to Pre-Op Cond Respiratory Status: Similar to Pre-op Cond. Level of Consciousness/Mental Status: Alert and Oriented Pain Control: Adequate, Prn Tx Ordered Nausea/Vomiting Control: Adequate, Prn Tx Ordered Complications Possibly Related to Anesthesia: None Noted
[2017-04-11] MEDS: LISINOPRIL 40 MG TAB PO SCH ×2 (12:32→13:25)
--- NOTE | 2017-04-11 12:43 | ASMTCMCOM ---
CM Note CM Note Notes: CM met w/ daughter regarding dispo planning. The plan is for pt to return to [facility] [place] w/ daughter. Daughter requested that she receives new MDPOA forms to fill out. Daughter will be filling out the paperwork and providing it back to staff to put in chart. Daughter reports that she plans on monitoring her medication and marijuana intake going forward. CM spoke w/ Dr. Ordaz and she reports that pts confusion is improving. Pt is oriented x3 today. Pt will return to day program at [facility]. CM spoke w/ Dr. Estrada at [facility] and provided updates. CM available for changes. Date Signed: 04/11/2017 12:42 PM Electronically Signed By:DUKE Bustamante
[2017-04-11 14:08] LABS: HEMATOCRIT 26.1 % (38.0-47.0)
[2017-04-11 14:25] LABS: ANION GAP 15 mEq/L (8-16); CARBON DIOXIDE 20 mEq/l (22-31); CHLORIDE 92 mEq/L (97-110); CREATININE 0.4 mg/dL (0.6-1.0); GLOMERULAR FILTRATION RATE > 60; GLUCOSE 133 mg/dL (70-100); POTASSIUM 3.4 mEq/L (3.5-5.2); SODIUM 127 mEq/L (134-144)
[2017-04-11] MEDS ORDERED: PROTOCOL POTASSIUM 1 DOSE MISC PRN (16:47)
--- NOTE | 2017-04-11 16:53 | HOSPPROG ---
Hospitalist Progress Note Assessment/Plan: * Upper GIB - gastric ulcers due to NSAID use s/p EGD -PO PPI -check Hpylori antibody - treat if positive * Hypovolemic shock -responded to IVF bolus * Hyponatremia - suspect due to psych meds -elevated urine sodium c/w SIADH -d/w with PCP Dr. Rachelle Reyes -reduce Venlafaxine but maintain Seroquel dose -fluid restriction + salt tabs and monitor closely * Metabolic encephalopathy - due to hyponatremia -improved dramatically with improvement of sodium * Mild dementia * Anxiety -continue seroquel, Venlafaxine, chronic ativan * Chronic leukocytosis -has seen hematology as outpatient - benign * DM II -metformin * ABL anemia -follow serial CC time - 45 minutes Subjective: c/o epigastric pain Objective: Vital Signs Temp Pulse Resp BP Pulse Ox 36.6 C 103 H 12 141/74 H 95 04/11/17 16:01 04/11/17 16:01 04/11/17 16:01 04/11/17 16:01 04/11/17 16:01 Laboratory Results 04/11/17 13:45 04/11/17 13:45 04/10/17 04/11/17 04/12/17 05:59 05:59 05:59 Intake Total 2778 120 Output Total 600 350 Balance 2178 -230 PT 14.3 SEC (12.0-15.0) 04/11/17 04:22 INR 1.12 (0.83-1.16) 04/11/17 04:22 case d/w with Dr Gutierrez - egd done Initially planned on ICU transfer due to tachycardia and hypotension, but she responded to IVF bolus and we were able to keep on PCU - Physical Exam Constitutional: no apparent distress, appears nourished, not in pain Cardiovascular: regular rate and rhythym, no murmur, rub, or gallop Respiratory: no respiratory distress, no rales or rhonchi, clear to auscultation Gastrointestinal: normoactive bowel sounds, soft, non-tender abdomen, no palpable masses Skin: no rashes or abrasions, no fluctuance, no induration Neurologic: AAOx3, sensation intact bilaterally Psychiatric: interacting appropriately, not anxious, not encephalopathic, thought process linear ICD10 Worksheet Patient Problems: Problems Problem Status Onset Altered mental status Acute Hyponatremia Acute
[2017-04-11] MEDS ORDERED: NS 1,000 ML IV SCH (17:00)
--- NOTE | 2017-04-11 17:41 | GCON ---
[f rep st] CONSULTATION DATE OF CONSULTATION: 04/11/2017 REFERRING PHYSICIAN: Abeba Ordaz MD REASON FOR CONSULTATION: Melena. HISTORY OF PRESENT ILLNESS: Dear Dr. Ordaz: Thank you very kindly for asking me to evaluate your pat rocio for a chief complaint of melena. She is a 76-year-old female who was admitted with confusion and altered mental status from her daughter's home felt related to hypovolemic hyponatremia. This has i mproved. The patient's mental status has also somewhat improved although she still has confusion. The re have been some reports of an underlying dementia that is not well clarified. Her daughter is at th e bedside and provides most of the medical history. The patient is unable to tell me much about her o wn personal health. Complicating features since her admission have been 2 episodes of hypotension and syncope. She has developed melena in the hospital and an episode of hematemesis that is coffee groun ds. She is stable hemodynamically at this time; however, her hematocrit has fallen from an admission hematocrit of 36 to a morning hematocrit today of 27.8. Her INR has been normal. Her BUN is elevated at 44. The patient reports having problems with chest discomfort, poor appetite, and left upper quadr ant pain. She reports that she has been noticing blood in her stool for several days at home which contreras s been described as dark and tarry. She denies any difficulty breathing or chest pain. She says her a ppetite has been poor and her daughter confirms that she has not been eating well over the last few d ays. It seems that these problems are, however, somewhat recent. PAST MEDICAL HISTORY: Is significant for an unclarified underlying dementia, hypovolemic hyponatremi a, hyperlipidemia, type 2 diabetes, hypertension, depression, chronic heartburn, degenerative cervica l disc disease. PAST SURGICAL HISTORY: Hysterectomy. FAMILY HISTORY: Negative for peptic ulcer disease, gastric cancer, anemia or bleeding disorders. MEDICATIONS: On admission include Ambien, venlafaxine, Seroquel, omeprazole, mirtazapine, metformin, lorazepam, lisinopril, [place], gabapentin, atorvastatin, aspirin. ALLERGIES: NONE KNOWN. REVIEW OF SYSTEMS: Is limited due to the patient's confusion but is as follows: CONSTITUTIONAL: Gene ral malaise, denies fever. HEENT: Denies headache or difficulty swallowing. PULMONARY: Denies shortne ss of breath or cough. CARDIOVASCULAR: Denies chest pain, or dizziness. GASTROINTESTINAL: She reports heartburn, dark tarry stools, left upper quadrant abdominal pain is reported. RHEUMATOLOGIC: Is sign ificant for neck and back pain. DERMATOLOGIC: Denies rash or jaundice. No pruritus. ENDOCRINE: Denies heat or cold intolerance. PSYCHIATRIC: She reports feeling quite anxious. GENITOURINARY: Denies hamlet turia, dysuria, or flank pain. PHYSICAL EXAM: VITAL SIGNS: Blood pressure is 170/96, mean arterial pressure is 120, heart rate is b etween 109 but has been as high as 155 last evening, oxygenation is 93% on 2 L, temperature is 36.8. GENERAL: Frail and somewhat elderly female confused but able to speak to me and provide some history. Does not appear in any acute distress other than looking anxious. HEENT: Nares are clear. Neck is powell pple. Oropharynx is clear. Sclerae anicteric. Mucous membranes are dry. PULMONARY: Diminished breath sounds but no focal rales or wheeze. CARDIOVASCULAR: Tachycardia with a regular rhythm. GI: Abdomen i s tender to palpation in the left upper and left lower quadrant without rebound or guarding. Bowel so unds are hypoactive. MUSCULOSKELETAL: Negative for joint deformity. No cyanosis or clubbing. Pulses a re 2+ at the radial and dorsalis pedis bilaterally. No edema. DERMATOLOGIC: No jaundice or rash. NEUR OLOGIC: Alert to person and place but not time. Unable to provide much remote history. Speech is norm al. Affect seemed anxious and somewhat flat. Motor is nonfocal. Does not have a tremor or obvious jean amanda. LABORATORY DATA: Includes the following: This morning's CBC, 04/11/2017 at 4:22, white blood count 17 .8, hematocrit 27.8, platelets are 288. INR was 1.12. Sodium 131, potassium 4.2, chloride 96, bicarbo kathi is 16, anion gap is 19, BUN 44, creatinine 0.7, glucose 144. Cortisol is 26. The urine toxicolog y is negative. Stool is positive for blood. IMPRESSION: 1. Altered mental status. This seems like an acute hyponatremic delirium in the setting of a chronic dementia. Cause of this is unknown but could be dehydration from her not eating and drinking. 2. Anorexia with basically a loss of appetite. 3. Melena. 4. Anemia secondary to acute blood loss. 5. Left upper quadrant pain. RECOMMENDATION: 1. PPI therapy. 2. N.p.o. 3. Urgent EGD to assess the melena. 4. I have discussed this with her daughter who is her care provider and who can provide consent. The patient is also able to communicate and participate in the conversation and is agreeable to have an endoscopy today. 5. Monitor H and H q.4. 6. Further recommendations to follow her endoscopic evaluation. /[id number]/MODL
[2017-04-11] MEDS: SODIUM CHLORIDE 1,000 MG TAB PO SCH (18:32)
[2017-04-11 19:05] LABS: HEMATOCRIT 24.2 % (38.0-47.0); HEMOGLOBIN 8.7 g/dL (12.6-16.3)
[2017-04-11 19:10] LABS: ANION GAP 12 mEq/L (8-16); CALCIUM 9.4 mg/dL (8.5-10.4); CARBON DIOXIDE 21 mEq/l (22-31); CHLORIDE 95 mEq/L (97-110); CREATININE 0.4 mg/dL (0.6-1.0); GLOMERULAR FILTRATION RATE > 60; GLUCOSE 111 mg/dL (70-100); POTASSIUM 3.3 mEq/L (3.5-5.2); SODIUM 128 mEq/L (134-144)
[2017-04-11] MEDS ORDERED: POTASSIUM CL 10 MEQ TAB PO ONE (19:40)
[2017-04-11] MEDS: QUEtiapine FUMARATE 200 MG TAB PO SCH (21:28)
[2017-04-12 01:10] LABS: ANION GAP 13 mEq/L (8-16); CALCIUM 9.6 mg/dL (8.5-10.4); CARBON DIOXIDE 22 mEq/l (22-31); CHLORIDE 100 mEq/L (97-110); CREATININE 0.4 mg/dL (0.6-1.0); GLOMERULAR FILTRATION RATE > 60; GLUCOSE 114 mg/dL (70-100); POTASSIUM 3.3 mEq/L (3.5-5.2); SODIUM 135 mEq/L (134-144)
[2017-04-12 01:14] LABS: HEMATOCRIT 25.4 % (38.0-47.0); HEMOGLOBIN 8.8 g/dL (12.6-16.3)
[2017-04-12 07:11] LABS: % IMMATURE GRANULYOCYTES 0.6 % (0.0-1.1); ABSOLUTE IMMATURE GRANULOCYTES 0.07 10^3/uL (0.00-0.10); ADD DIFF? NO; ADD MORPH? NO; ADD SCAN? NO; ATYPICAL LYMPHOCYTE FLAG 0 (0-99); FRAGMENT RBC FLAG 0 (0-99); HEMATOCRIT 27.9 % (38.0-47.0); HEMOGLOBIN 9.5 g/dL (12.6-16.3); LEFT SHIFT FLG 0 (0-99); LIPEMIA HEMOLYSIS FLAG 90 (0-99); MEAN CELL HEMOGLOBIN 30.5 pg (27.9-34.1); MEAN CELL HEMOGLOBIN CONCENTR. 34.1 g/dL (32.4-36.7); MEAN CELL VOLUME 89.7 fL (81.5-99.8); MEAN PLATELET VOLUME 8.5 fL (8.7-11.7); PLATELET CLUMPS FLAG 10 (0-99); PLATELET COUNT 295 10^3/uL (150-400); RED BLOOD CELL COUNT 3.11 10^6/uL (4.18-5.33)
[2017-04-12 07:14] LABS: ANION GAP 14 mEq/L (8-16); CALCIUM 9.6 mg/dL (8.5-10.4); CARBON DIOXIDE 21 mEq/l (22-31); CHLORIDE 100 mEq/L (97-110); CREATININE 0.5 mg/dL (0.6-1.0); GLOMERULAR FILTRATION RATE > 60; GLUCOSE 138 mg/dL (70-100); POTASSIUM 3.8 mEq/L (3.5-5.2); SODIUM 135 mEq/L (134-144)
[2017-04-12] MEDS: ACETAMINOPHEN 500 MG TAB PO SCH ×2 (09:21→19:53)
[2017-04-12] MEDS: ATORVASTATIN CALCIUM 40 MG TAB PO SCH (09:22)
[2017-04-12] MEDS: LORazepam 0.5 MG TAB PO SCH ×2 (09:22→17:38)
[2017-04-12] MEDS: ESTROGENS,CONJUGATED 0.3 MG TAB PO SCH (09:22)
[2017-04-12] MEDS: SODIUM CHLORIDE 1,000 MG TAB PO SCH ×2 (09:23→17:38)
[2017-04-12] MEDS: PANTOPRAZOLE SODIUM 40 MG TAB PO SCH (09:23)
[2017-04-12] MEDS: metFORMIN HCL 500 MG TAB PO SCH ×2 (09:23→17:38)
[2017-04-12] MEDS ORDERED: POTASSIUM CL 10 MEQ TAB PO ONE ×2 (10:01→19:14)
--- NOTE | 2017-04-12 12:40 | HOSPPROG ---
Hospitalist Progress Note Assessment/Plan: # UGIB d/t duodenal ulcers from NSAIDs - protonix 40 PO daily # hypovolemic shock - resolved with IVF # hyponatremia - possibly venlafexine, possibly d/t chronic subacute GI blood loss - follow daily - was discussed with Dr Reyes - bre to reduce venlafexine to 150 daily # acute encephalopathy - better now with improvement in Na # pain - "all over" - restart venlafexine; avoid narcotics - trial of carafate for epigastric pain # mild dementia # anxiety - ativan, seroquel, venlafexine # chronic leukocytosis - saw heme as outpatient, benign # DM2 - metformin # ABLA - stable Subjective: complains of "pain all over", also some epigastric burning; seen with her daughter Objective: Vital Signs Temp Pulse Resp BP Pulse Ox 36.6 C 83 12 163/92 H 94 04/12/17 08:10 04/12/17 08:10 04/12/17 08:10 04/12/17 09:24 04/12/17 08:10 Laboratory Results 04/12/17 06:43 04/12/17 06:43 04/11/17 04/12/17 04/13/17 05:59 05:59 05:59 Intake Total 2778 420 Output Total 600 1350 300 Balance 2178 -930 -300 PT 14.3 SEC (12.0-15.0) 04/11/17 04:22 INR 1.12 (0.83-1.16) 04/11/17 04:22 chart reviewed EGD note reviewed - Time Spent With Patient Time Spent with Patient: greater than 35 minutes Time Spent with Patient: Greater than 35 minutes spent on this patients care, greater than 50% of time spent counseling, educating, and coordinating care regarding the above mentioned plan. - Physical Exam Constitutional: no apparent distress, unkempt ICD10 Worksheet Patient Problems: Problems Problem Status Onset Altered mental status Acute Hyponatremia Acute
[2017-04-12] MEDS: LISINOPRIL 40 MG TAB PO SCH (12:46)
[2017-04-12] MEDS: VENLAFAXINE XR 150 MG CAP PO SCH (12:46)
[2017-04-12] MEDS: SUCRALFATE 1 GM TAB PO SCH ×2 (17:38→19:53)
[2017-04-12 18:19] LABS: POTASSIUM 3.9 mEq/L (3.5-5.2)
[2017-04-12] MEDS: QUEtiapine FUMARATE 200 MG TAB PO SCH (19:53)
[2017-04-13] MEDS: ACETAMINOPHEN 500 MG TAB PO PRN (01:51)
[2017-04-13 05:34] LABS: % IMMATURE GRANULYOCYTES 0.4 % (0.0-1.1); ABSOLUTE IMMATURE GRANULOCYTES 0.04 10^3/uL (0.00-0.10); ADD DIFF? NO; ADD MORPH? NO; ADD SCAN? NO; ATYPICAL LYMPHOCYTE FLAG 10 (0-99); FRAGMENT RBC FLAG 0 (0-99); HEMATOCRIT 25.1 % (38.0-47.0); HEMOGLOBIN 8.6 g/dL (12.6-16.3); LEFT SHIFT FLG 0 (0-99); LIPEMIA HEMOLYSIS FLAG 90 (0-99); MEAN CELL HEMOGLOBIN 30.4 pg (27.9-34.1); MEAN CELL HEMOGLOBIN CONCENTR. 34.3 g/dL (32.4-36.7); MEAN CELL VOLUME 88.7 fL (81.5-99.8); MEAN PLATELET VOLUME 8.5 fL (8.7-11.7); PLATELET CLUMPS FLAG 0 (0-99); PLATELET COUNT 273 10^3/uL (150-400); RED BLOOD CELL COUNT 2.83 10^6/uL (4.18-5.33); RED CELL DISTRIBUTION WIDTH 15.7 % (11.5-15.2)
[2017-04-13 05:51] LABS: ANION GAP 10 mEq/L (8-16); CALCIUM 9.7 mg/dL (8.5-10.4); CARBON DIOXIDE 24 mEq/l (22-31); CHLORIDE 89 mEq/L (97-110); CREATININE 0.6 mg/dL (0.6-1.0); GLOMERULAR FILTRATION RATE > 60; GLUCOSE 97 mg/dL (70-100); POTASSIUM 3.9 mEq/L (3.5-5.2); SODIUM 123 mEq/L (134-144)
[2017-04-13] MEDS ORDERED: POTASSIUM CL 10 MEQ TAB PO ONE (07:45)
[2017-04-13] MEDS: ATORVASTATIN CALCIUM 40 MG TAB PO SCH (08:07)
[2017-04-13] MEDS: ACETAMINOPHEN 500 MG TAB PO SCH ×2 (08:07→20:52)
[2017-04-13] MEDS: metFORMIN HCL 500 MG TAB PO SCH ×2 (08:07→17:31)
[2017-04-13] MEDS: LORazepam 0.5 MG TAB PO SCH ×2 (08:08→17:32)
[2017-04-13] MEDS: VENLAFAXINE XR 150 MG CAP PO SCH (08:08)
[2017-04-13] MEDS: ESTROGENS,CONJUGATED 0.3 MG TAB PO SCH (08:08)
[2017-04-13] MEDS: SODIUM CHLORIDE 1,000 MG TAB PO SCH ×2 (08:08→17:31)
[2017-04-13] MEDS: SUCRALFATE 1 GM TAB PO SCH ×4 (08:08→20:52)
[2017-04-13] MEDS: PANTOPRAZOLE SODIUM 40 MG TAB PO SCH (08:10)
[2017-04-13 09:08] LABS: ANION GAP 12 mEq/L (8-16); CALCIUM 9.6 mg/dL (8.5-10.4); CARBON DIOXIDE 23 mEq/l (22-31); CHLORIDE 88 mEq/L (97-110); CREATININE 0.5 mg/dL (0.6-1.0); GLOMERULAR FILTRATION RATE > 60; GLUCOSE 129 mg/dL (70-100); POTASSIUM 3.5 mEq/L (3.5-5.2); SODIUM 123 mEq/L (134-144)
[2017-04-13] MEDS ORDERED: NS 1,000 ML IV ONE (09:52)
--- NOTE | 2017-04-13 11:54 | HOSPPROG ---
Hospitalist Progress Note Assessment/Plan: # UGIB d/t duodenal ulcers from NSAIDs - protonix 40 PO daily # hypovolemic shock - resolved with IVF # hyponatremia much worse today; could be SNRI effect, but seems quite abrupt; also consider hypovolemia - was discussed with Dr Reyes - ok to reduce venlafexine to 150 daily - hold effexor for now - NS 1L bolus, recheck BMP - check Bishnu and osms; - fluid restrict # acute encephalopathy - better now despite low Na # pain - "all over" - seems better on effexor - trial of carafate for epigastric pain # mild dementia # anxiety - ativan, seroquel, venlafexine # chronic leukocytosis - saw heme as outpatient, benign # DM2 - metformin # ABLA - stable Subjective: feels better today; mentating normally Objective: Vital Signs Temp Pulse Resp BP Pulse Ox 37.2 C 80 16 146/73 H 93 04/13/17 11:25 04/13/17 11:25 04/13/17 11:25 04/13/17 11:25 04/13/17 11:25 Laboratory Results 04/13/17 04:24 04/13/17 08:26 04/12/17 04/13/17 04/14/17 05:59 05:59 05:59 Intake Total 420 700 Output Total 1350 600 250 Balance -930 100 -250 PT 14.3 SEC (12.0-15.0) 04/11/17 04:22 INR 1.12 (0.83-1.16) 04/11/17 04:22 high risk with severe hypoNa - Physical Exam Constitutional: no apparent distress, appears nourished Cardiovascular: regular rate and rhythym, systolic murmur Respiratory: no respiratory distress, no rales or rhonchi, clear to auscultation Gastrointestinal: normoactive bowel sounds, soft, non-tender abdomen, no palpable masses ICD10 Worksheet Patient Problems: Problems Problem Status Onset Altered mental status Acute Hyponatremia Acute
[2017-04-13] MEDS: LISINOPRIL 40 MG TAB PO SCH (12:43)
[2017-04-13 14:16] LABS: ANION GAP 11 mEq/L (8-16); CARBON DIOXIDE 21 mEq/l (22-31); CHLORIDE 93 mEq/L (97-110); CREATININE 0.5 mg/dL (0.6-1.0); GLOMERULAR FILTRATION RATE > 60; GLUCOSE 101 mg/dL (70-100); POTASSIUM 3.7 mEq/L (3.5-5.2); SODIUM 125 mEq/L (134-144)
[2017-04-13] MEDS: QUEtiapine FUMARATE 200 MG TAB PO SCH (20:52)
[2017-04-14] MEDS: ACETAMINOPHEN 500 MG TAB PO PRN (04:29)
[2017-04-14 05:48] LABS: % IMMATURE GRANULYOCYTES 0.5 % (0.0-1.1); ABSOLUTE IMMATURE GRANULOCYTES 0.05 10^3/uL (0.00-0.10); ADD DIFF? NO; ADD MORPH? NO; ADD SCAN? NO; ATYPICAL LYMPHOCYTE FLAG 20 (0-99); FRAGMENT RBC FLAG 0 (0-99); HEMATOCRIT 25.7 % (38.0-47.0); HEMOGLOBIN 8.7 g/dL (12.6-16.3); LEFT SHIFT FLG 0 (0-99); LIPEMIA HEMOLYSIS FLAG 90 (0-99); MEAN CELL HEMOGLOBIN 31.3 pg (27.9-34.1); MEAN CELL HEMOGLOBIN CONCENTR. 33.9 g/dL (32.4-36.7); MEAN CELL VOLUME 92.4 fL (81.5-99.8); MEAN PLATELET VOLUME 8.6 fL (8.7-11.7); PLATELET CLUMPS FLAG 10 (0-99); PLATELET COUNT 288 10^3/uL (150-400); RED BLOOD CELL COUNT 2.78 10^6/uL (4.18-5.33); RED CELL DISTRIBUTION WIDTH 15.8 % (11.5-15.2)
[2017-04-14 05:59] LABS: ANION GAP 11 mEq/L (8-16); CALCIUM 9.5 mg/dL (8.5-10.4); CARBON DIOXIDE 23 mEq/l (22-31); CHLORIDE 90 mEq/L (97-110); CREATININE 0.5 mg/dL (0.6-1.0); GLOMERULAR FILTRATION RATE > 60; GLUCOSE 96 mg/dL (70-100); POTASSIUM 3.6 mEq/L (3.5-5.2); SODIUM 124 mEq/L (134-144)
[2017-04-14] MEDS: ESTROGENS,CONJUGATED 0.3 MG TAB PO SCH (10:30)
[2017-04-14] MEDS: metFORMIN HCL 500 MG TAB PO SCH ×2 (10:32→18:04)
[2017-04-14] MEDS: SUCRALFATE 1 GM TAB PO SCH ×4 (10:32→20:52)
[2017-04-14] MEDS: ACETAMINOPHEN 500 MG TAB PO SCH ×2 (10:33→20:52)
[2017-04-14] MEDS: SODIUM CHLORIDE 1,000 MG TAB PO SCH ×2 (10:34→18:04)
[2017-04-14] MEDS: LORazepam 0.5 MG TAB PO SCH ×2 (10:34→18:04)
[2017-04-14] MEDS: ATORVASTATIN CALCIUM 40 MG TAB PO SCH (10:36)
[2017-04-14] MEDS: PANTOPRAZOLE SODIUM 40 MG TAB PO SCH (10:37)
[2017-04-14] MEDS ORDERED: POTASSIUM CL 10 MEQ TAB PO ONE (11:18)
[2017-04-14] MEDS: LISINOPRIL 40 MG TAB PO SCH (12:40)
--- NOTE | 2017-04-14 13:57 | ASMTCMCOM ---
CM Note CM Note Notes: 04/14/2017 Case Management Note Received phone call from Maral Wilkes NP for [facility]. As requested by Maral, faxed updates to [phone]. Case Management d/c poc remains home w/daughter resuming attendance at [facility] day program when medically stable. Case Management to follow. Date Signed: 04/14/2017 01:56 PM Electronically Signed By:Marce Tucker RN
--- NOTE | 2017-04-14 15:10 | HOSPPROG ---
Hospitalist Progress Note Assessment/Plan: # UGIB d/t duodenal ulcers from NSAIDs - protonix 40 PO daily # hypovolemic shock - resolved with IVF # hyponatremia not improved today (got a dose of effexor yesterday morning); could be SNRI effect, but seems quite abrupt - stop effexor, recheck tomorrow - urine osms still pending - fluid restrict, Na tabs # acute encephalopathy - much better now may have been d/t UGIB not hypoNa # pain - "all over" - much better - carafate is helping her epigastric pain # mild dementia # anxiety - ativan, seroquel # chronic leukocytosis - saw heme as outpatient, benign # DM2 - metformin # ABLA - stable Subjective: in good spirits today; abd pain much better with carafate; seen with her daughter Objective: Vital Signs Temp Pulse Resp BP Pulse Ox 37.1 C 84 14 110/69 95 04/14/17 12:00 04/14/17 12:00 04/14/17 12:00 04/14/17 12:00 04/14/17 08:00 Laboratory Results 04/14/17 05:05 04/14/17 05:05 04/13/17 04/14/17 04/15/17 05:59 05:59 05:59 Intake Total 700 1100 420 Output Total 600 1500 600 Balance 100 -400 -180 PT 14.3 SEC (12.0-15.0) 04/11/17 04:22 INR 1.12 (0.83-1.16) 04/11/17 04:22 - Time Spent With Patient Time Spent with Patient: greater than 25 minutes Time Spent with Patient: Greater than 25 minutes spent on this patients care, greater than 50% of time spent counseling, educating, and coordinating care regarding the above mentioned plan. - Physical Exam Constitutional: no apparent distress, appears nourished ICD10 Worksheet Patient Problems: Problems Problem Status Onset Altered mental status Acute Hyponatremia Acute
[2017-04-14 19:42] LABS: POTASSIUM 4.7 mEq/L (3.5-5.2)
[2017-04-14] MEDS: QUEtiapine FUMARATE 200 MG TAB PO SCH (20:52)
[2017-04-15 05:32] LABS: % IMMATURE GRANULYOCYTES 0.6 % (0.0-1.1); ABSOLUTE IMMATURE GRANULOCYTES 0.07 10^3/uL (0.00-0.10); ABSOLUTE NRBC COUNT 0.02 10^3/uL (0-0.01); ADD DIFF? NO; ADD MORPH? NO; ADD SCAN? NO; ATYPICAL LYMPHOCYTE FLAG 10 (0-99); FRAGMENT RBC FLAG 0 (0-99); HEMATOCRIT 26.5 % (38.0-47.0); LEFT SHIFT FLG 0 (0-99); LIPEMIA HEMOLYSIS FLAG 90 (0-99); MEAN CELL VOLUME 91.4 fL (81.5-99.8); MEAN PLATELET VOLUME 8.6 fL (8.7-11.7); NRBC-AUTO% 0.2 % (0.0-0.2); PLATELET CLUMPS FLAG 10 (0-99); PLATELET COUNT 364 10^3/uL (150-400); RED CELL DISTRIBUTION WIDTH 16.1 % (11.5-15.2)
[2017-04-15 07:08] LABS: ANION GAP 13 mEq/L (8-16); CALCIUM 10.6 mg/dL (8.5-10.4); CARBON DIOXIDE 22 mEq/l (22-31); CHLORIDE 96 mEq/L (97-110); CREATININE 0.7 mg/dL (0.6-1.0); GLOMERULAR FILTRATION RATE > 60; GLUCOSE 95 mg/dL (70-100); POTASSIUM 4.6 mEq/L (3.5-5.2); SODIUM 131 mEq/L (134-144)
[2017-04-15] MEDS: SODIUM CHLORIDE 1,000 MG TAB PO SCH ×2 (07:42→17:10)
[2017-04-15] MEDS: PANTOPRAZOLE SODIUM 40 MG TAB PO SCH (07:42)
[2017-04-15] MEDS: ACETAMINOPHEN 500 MG TAB PO SCH ×2 (07:42→21:16)
[2017-04-15] MEDS: ATORVASTATIN CALCIUM 40 MG TAB PO SCH (07:42)
[2017-04-15] MEDS: SUCRALFATE 1 GM TAB PO SCH ×4 (07:43→21:16)
[2017-04-15] MEDS: ESTROGENS,CONJUGATED 0.3 MG TAB PO SCH (07:43)
[2017-04-15] MEDS: metFORMIN HCL 500 MG TAB PO SCH ×2 (07:43→17:10)
[2017-04-15] MEDS: LORazepam 0.5 MG TAB PO SCH ×2 (09:59→17:10)
[2017-04-15] MEDS: LISINOPRIL 40 MG TAB PO SCH (12:54)
[2017-04-15] MEDS: ACYCLOVIR 200 MG CAP PO SCH ×3 (12:57→21:16)
--- NOTE | 2017-04-15 14:03 | HOSPPROG ---
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 she is currently also on 1.2L fluid restriction and salt tabs. Will liberalized fluid restriction and continue to monitor. # acute encephalopathy: resolved, does continue to have baseline dementia, suspect component of delerium with hypotension, metabolic derangements and acute blood loss all contributing on presentation # anxiety: well controlled, continue seroquel, ativan prn # mild dementia: now at baseline, patient really requiring 24 hour care and family and CM working on making sure that is possible # chronic leukocytosis: benign, has had op w/u # DM2: continue metformin # HSV: starting acyclovir # acute blood loss anemia: h/h have been stable though lower than usual baseline , continue to trend # dispo: IP status, likely dc in am if 24 hour care options are in place Patient new to my care. Old records reviewed and summarized as above. Care plan reviewed with CM and patients daughter over the phone Subjective: no significant overnight events, patient notes that she is feeling overall better but still quite fatigued Objective: Vital Signs Temp Pulse Resp BP Pulse Ox 36.4 C 92 20 118/60 93 04/15/17 11:13 04/15/17 11:13 04/15/17 11:13 04/15/17 11:13 04/15/17 11:13 Laboratory Results 04/15/17 04:11 04/15/17 04:11 04/14/17 04/15/17 04/16/17 05:59 05:59 05:59 Intake Total 1100 2920 100 Output Total 1500 2150 Balance -400 770 100 PT 14.3 SEC (12.0-15.0) 04/11/17 04:22 INR 1.12 (0.83-1.16) 04/11/17 04:22 awake alert anicteric op clear rrr no mrg cta b soft nt nd no cce warm dry well perfused oriented - Time Spent With Patient Time Spent with Patient: greater than 35 minutes Time Spent with Patient: Greater than 35 minutes spent on this patients care, greater than 50% of time spent counseling, educating, and coordinating care regarding the above mentioned plan. ICD10 Worksheet Patient Problems: Problems Problem Status Onset Altered mental status Acute Hyponatremia Acute
--- NOTE | 2017-04-15 15:50 | ASMTCMCOM ---
CM Note CM Note Notes: 04/15/2017 Case Management Note Phone call from daughter Ifeoma ([phone]) requesting information re: SNF placement. Pt is currently enrolled in [facility] with focus on providing community based higher levels of care. Ifeoma asked that case management coordinate care with case management director at [facility] Sierra Loza [phone]. [facility] has reviewed pt records and feels placement is acceptable in [facility] program. Focus of [facility] is to provide higher levels of medical care in community, pt well known to program, pt will resume PT services at [facility] and will be followed by program HAND CIGAR MAKING SUPERVISOR Maral Wilkes. Sierra Loza reported multiple phone calls with Ifeoma yesterday and today explaining [facility]ACE focus and higher levels of care provided that SNF rehab. 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 Sierra to reinforce information. Case Management d/c poc: return to [facility] program and d/c home to daughter when medically stable with follow up as directed. Date Signed: 04/15/2017 03:50 PM Electronically Signed By:Marce Tucker RN
[2017-04-15] MEDS: ACETAMINOPHEN 500 MG TAB PO PRN (16:18)
[2017-04-15 20:00] LABS: POTASSIUM 3.8 mEq/L (3.5-5.2)
[2017-04-15] MEDS: QUEtiapine FUMARATE 200 MG TAB PO SCH (21:16)
[2017-04-15] MEDS ORDERED: POTASSIUM CL 10 MEQ TAB PO ONE (23:03)
[2017-04-16 05:03] LABS: POTASSIUM 4.7 mEq/L (3.5-5.2)
[2017-04-16 07:14] VITALS: BP 114/70; PULSE 92; RESP 16; TEMP 96.8; O2SAT 96
[2017-04-16] MEDS: SODIUM CHLORIDE 1,000 MG TAB PO SCH (07:40)
[2017-04-16] MEDS: ATORVASTATIN CALCIUM 40 MG TAB PO SCH (07:41)
[2017-04-16] MEDS: PANTOPRAZOLE SODIUM 40 MG TAB PO SCH (07:41)
[2017-04-16] MEDS: ACETAMINOPHEN 500 MG TAB PO SCH (07:41)
[2017-04-16] MEDS: ACYCLOVIR 200 MG CAP PO SCH (07:42)
[2017-04-16] MEDS: metFORMIN HCL 500 MG TAB PO SCH (07:42)
[2017-04-16] MEDS: ESTROGENS,CONJUGATED 0.3 MG TAB PO SCH (07:42)
[2017-04-16] MEDS: SUCRALFATE 1 GM TAB PO SCH ×2 (07:42→10:56)
[2017-04-16 10:00] LABS: ANION GAP 14 mEq/L (8-16); CALCIUM 10.3 mg/dL (8.5-10.4); CARBON DIOXIDE 22 mEq/l (22-31); CHLORIDE 101 mEq/L (97-110); CREATININE 0.5 mg/dL (0.6-1.0); GLOMERULAR FILTRATION RATE > 60; GLUCOSE 118 mg/dL (70-100); POTASSIUM 4.9 mEq/L (3.5-5.2); SODIUM 137 mEq/L (134-144)
[2017-04-16] MEDS: LORazepam 0.5 MG TAB PO SCH (10:14)
--- NOTE | 2017-04-16 10:30 | PDDCSUM ---
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 Continue to hold effexor with plan for patient to f/u with PCP to determine when to resume. # acute encephalopathy: resolved, does continue to have baseline dementia, suspect component of delerium with hypotension, metabolic derangements and acute blood loss all contributing on presentation # anxiety: well controlled, continue seroquel, ativan prn # mild dementia: now at baseline, patient really requiring 24 hour care and family and CM working on making sure that is possible # chronic leukocytosis: benign, has had op w/u # DM2: continue metformin # HSV: starting acyclovir # acute blood loss anemia: h/h have been stable though lower than usual baseline , continue to trend dc home with [facility] program >35 min spent in dc of patient more than half in coordination of care
[2017-04-16] MEDS: LISINOPRIL 40 MG TAB PO SCH (10:56)
--- NOTE | 2017-04-16 11:32 | ASMTCMCOM ---
CM Note CM Note Notes: 04/15/2017 Case Management Note Spoke w/daughter Ifeoma in length on the phone. Pt does not qualify for SNF rehab. Discussed benefits of [facility] program over SNF. Ifeoma requested info on unskilled supervision in the home. Encouraged Ifeoma to call Sierra Loza, field case manager at [facility] for support and explanation of access to Medicaid benefits. Spoke w/Maral Wilkes SENIOR JAVA WEB APPLICATION DEVELOPER for [facility] [phone] and [phone]. Requested d/c paperwork faxed to [phone]. Faxed final orders. Maral to have [facility] call Ifeoma to offer support. Pt to discharge to daughter Ifeoma and resume [facility] program on . Daughter to transport home. Case Management spent greater than 45 mins on this case today. Date Signed: 04/16/2017 11:31 AM Electronically Signed By:Marce Tucker RN
--- NOTE | 2017-04-16 16:23 | ASDISCHSUM ---
Discharge Information Plan Status:Home with No Needs Medically Cleared to Leave: Discharge Date:04/16/2017 01:04 PM CM D/C Disposition:Home, Routine, Self-Care ADT D/C Disposition:[id number] Projected Discharge Date:04/16/2017 01:04 PM Transportation at D/C:Friend Discharge Delay Reason: Follow-Up Date:04/16/2017 01:04 PM Discharge Slot: Final Diagnosis: Placement Information Patient Contact Information Contact Name:AARON Relationship:Daughter Address: Work Phone: City: [facility] Phone: State/Zip Code: Email: Financial Information Financial Class:HMO and PPO Plans Primary Plan Desc:[facility] Primary Plan Number:[id number] Secondary Plan Desc: Secondary Plan Number: Assessment Information [facility] Initial CM Assessment Living Arrangements What is your living Answers: With Child(amelia) arrangement? Who do you live with? Type Of Residence What kind of residence do Answers: House you live in? Discharge Plan Comments Coordination Status Comments Notes: Pt is a 76 y/o female admitted w/ hyponatremia and confusion. Pt has a hx of dementia and lives w/ daughter. Pt recently moved here from [place]. PT is currently recommending home w/ 24hr supervision. Still awaiting OT recommendations. CM met w/ daughter and pt for dispo planning. CM informed daughter of therapies recommendations. Daughter would like to touch base tomorrow. Pt has a pediatric critical care nurse through her PCP's office, Rachelle ([phone]). CM spoke w/ Rachelle and provided updates. CM to follow. Date Signed: 04/10/2017 04:47 PM Electronically Signed By:[facility] CM Progress Note CM Note CM Note Notes: CM met w/ daughter regarding dispo planning. The plan is for pt to return to [facility] [place] w/ daughter. Daughter requested that she receives new MDPOA forms to fill out. Daughter will be filling out the paperwork and providing it back to staff to put in chart. Daughter reports that she plans on monitoring her medication and marijuana intake going forward. CM spoke w/ Dr. Ordaz and she reports that pts confusion is improving. Pt is oriented x3 today. Pt will return to day program at [facility]. CM spoke w/ Dr. Estrada at [facility] and provided updates. CM available for changes. Date Signed: 04/11/2017 12:42 PM Electronically Signed By:[facility] JOHN Progress Note CM Note CM Note Notes: 04/14/2017 Case Management Note Received phone call from Maral Wilkes NP for [facility] program. As requested by Maral, faxed updates to [phone]. Case Management d/c poc remains home w/daughter resuming attendance at [facility] day program when medically stable. Case Management to follow. Date Signed: 04/14/2017 01:56 PM Electronically Signed By:Marce Tucker RN [facility] JOHN Progress Note CM Note CM Note Notes: 04/15/2017 Case Management Note Phone call from daughter Ifeoma ([phone]) requesting information re: SNF placement. Pt is currently enrolled in [facility] program with focus on providing community based higher levels of care. Ifeoma asked that case management coordinate care with adult protective caseworker at [facility] Sierra Loza [phone]. [facility] has reviewed pt records and feels placement is acceptable in [facility] program. Focus of [facility]ACE is to provide higher levels of medical care in community, pt well known to program, pt will resume PT services at [facility] and will be followed by program HOSPITAL PHARMACY TECHNICIAN Maral Wilkes. Sierra Loza reported multiple phone calls with Ifeoma yesterday and today explaining [facility]ACE focus and higher levels of care provided that SNF rehab. 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 Sierra to reinforce information. Case Management d/c poc: return to [facility] program and d/c home to daughter when medically stable with follow up as directed. Date Signed: 04/15/2017 03:50 PM Electronically Signed By:Marce Tucker RN [facility] CM Progress Note CM Note CM Note Notes: 04/15/2017 Case Management Note Spoke w/giuseppe Dia in length on the phone. Pt does not qualify for SNF rehab. Discussed benefits of [facility] program over SNF. Ifeoma requested info on unskilled supervision in the home. Encouraged Ifeoma to call Sierra Loza, adult protective caseworker at [facility] for support and explanation of access to Medicaid benefits. Spoke w/Maral Wilkes HOSPITAL PHARMACY TECHNICIAN for [facility] [phone] and [phone]. Requested d/c paperwork faxed to [phone]. Faxed final orders. Maral to have [facility] call Ifeoma to offer support. Pt to discharge to daughter Ifeoma and resume [facility] program on . Daughter to transport home. Case Management spent greater than 45 mins on this case today. Date Signed: 04/16/2017 11:31 AM Electronically Signed By:Marce Tucker RN Intervention Information
== END 2017-04-16 13:04 | disposition home health service (06) | DRG 640 ==
LOC: F2W 04:09 → OBSVTOIN 05:14
PROVIDERS: ADMIT Family Medicine; ATTEND Family Medicine
PROC: 0DJ08ZZ Inspection of Upper Intestinal Tract, Via Natural or Artificial Opening Endoscopic (ICD-10-PCS; principal; 2017-04-11 10:30)
DX: E87.1 Hypo-osmolality and hyponatremia (principal); G93.41 Metabolic encephalopathy; D62 Acute posthemorrhagic anemia; K25.9 Gastric ulcer, unspecified as acute or chronic, without hemorrhage or perforation; K26.9 Duodenal ulcer, unspecified as acute or chronic, without hemorrhage or perforation; T39.395A Adverse effect of other nonsteroidal anti-inflammatory drugs [NSAID], initial encounter; T43.95XA Adverse effect of unspecified psychotropic drug, initial encounter; B00.9 Herpesviral infection, unspecified; D72.829 Elevated white blood cell count, unspecified; R63.0 Anorexia; E11.9 Type 2 diabetes mellitus without complications; E78.5 Hyperlipidemia, unspecified; K21.9 Gastro-esophageal reflux disease without esophagitis; I10 Essential (primary) hypertension; Z91.81 History of falling
CPT/HCPCS: 80305; 82947-QW; 96374; 97116-GP; 97161-GP; 97165-GO; 97535-GO; G0480; J1170; J1650; J2001; J2060; J2405; J2704; J3010

== ENCOUNTER → 2017-09-26 | Outpatient (CLI) | payer OTHER | LOC: FIMAGING 09:17 | PROVIDERS: ATTEND Internal Medicine Geriatric Medicine | DX: Z12.31 Encounter for screening mammogram for malignant neoplasm of breast (principal) ==

== ENCOUNTER → 2018-02-27 | Outpatient (CLI) | payer OTHER | LOC: CIMAGING 13:22 | PROVIDERS: ATTEND Nurse Practitioner Family | DX: R51 Headache (principal); R42 Dizziness and giddiness | CPT/HCPCS: 70450-PO ==